=== PATIENT | male | born 1960 | race Caucasian/White ===

== ENCOUNTER 2018-03-14 20:56 | Emergency (ER) | payer BC ==
[~2018-03-14] VITALS: Ht 152.4 cm; Wt 68.1 kg
[2018-03-14 20:58] VITALS: BP 137/90
== END 2018-03-14 22:09 | disposition home or self-care (01) ==
LOC: ED 21:45
DX: H61.22 Impacted cerumen, left ear (principal); H92.22 Otorrhagia, left ear
CPT/HCPCS: 99281